=== PATIENT | female | born 1950 | race Caucasian/White ===

== ENCOUNTER 2016-09-27 10:44 | Emergency (ER) | payer MEDICARE ==
[2016-09-27] MEDS ORDERED: TORAdol 30 mg Injection IV ONE (11:37)
[2016-09-27] MEDS ORDERED: Sodium Chloride 0.9% 1000 ML 1,000 ML IV SCH (11:45)
--- NOTE | 2016-09-27 11:47 | ERPHSYRPT ---
- History of Present Illness Time Seen by Provider: 09/27/16 11:20 Historian: patient Exam Limitations: clinical condition Patient Subjective Stated Complaint: pt here for pain to right sided chest pain for 2 days, worse with movement, co some sob, no cough, fever, or nausea Triage Nursing Assessment: pt alert, resp easy,skin w/d, chest clear, moves all ext well. no edema noted, Physician History: PATIENT WITH HISTORY OF DIABETES, HYPERTENSION COMPLAINS OF PRODUCTIVE COUGH YELLOW SPUTUM, RIGHT SIDED CHEST PAINS UPON DEEP INSPIRATION, MOTION OF TORSO AND COUGHING. DENIES FEVER, CHILLS, RADIATION OF PAIN TO NECK, JAW, ARMS OR DYSPNEA Timing/Duration: day(s) Activities at Onset: none Quality: sharpness Location: other (RIGHT SIDE OF CHEST) Severity of Pain-Max: mild Severity of Pain-Current: mild Modifying Factors: Improves With: breathing, coughing, change in position Associated Symptoms: cough Prior Chest Pain/Cardiac Workup: no prior cardiac workup Nitro Today/Relief: no nitro taken today Aspirin Treatment Today: no aspirin today Allergies/Adverse Reactions: No Known Drug Allergies Allergy (Verified 09/27/16 11:15) Home Medications: Aspirin [Tessa Chewable] 81 mg PO DAILY 04/01/14 [History] Ca Carbonate/Vitamin D3/Vit K [Calcium + D Soft Chewable Tab] 1 each PO DAILY [History] Glipizide 10 mg [Glucotrol 10 MG] 10 mg PO BID 04/01/14 [History] Levothyroxine Sodium 150 Mcg [Synthroid 150 Mcg] 112 mcg PO DAILY 04/01/14 [History] Lisinopril/Hydrochlorothiazide [Lisinopril-Hctz 20-25 mg Tab] 1 tab PO DAILY [History] Metformin HCl 1000 mg [Glucophage 1000 MG] 1,000 mg PO BID 04/01/14 [History] Alendronate Sodium 70 mg [Fosamax 70 MG] 70 mg WEEKLY 09/27/16 [History] Pravastatin Sodium 40 mg DAILY 09/27/16 [History] Hx Influenza Vaccination/Date Given: Yes Hx Pneumococcal Vaccination/Date Given: Yes Immunizations Up to Date: Yes - Review of Systems Constitutional: No Fever, No Chills Eyes: No Symptoms Ears, Nose, & Throat: No Symptoms Respiratory: Cough, No Dyspnea Cardiac: Chest Pain, No Edema, No Syncope Abdominal/Gastrointestinal: No Symptoms, No Abdominal Pain, No Nausea, No Vomiting, No Diarrhea Genitourinary Symptoms: No Symptoms, No Dysuria Musculoskeletal: No Symptoms, No Back Pain, No Neck Pain Skin: No Symptoms, No Rash Neurological: No Symptoms, No Dizziness, No Focal Weakness, No Sensory Changes Psychological: No Symptoms Endocrine: No Symptoms All Other Systems: Reviewed and Negative - Past Medical History Pertinent Past Medical History: Yes Neurological History: No Pertinent History ENT History: No Pertinent History Cardiac History: Hypertension Respiratory History: No Pertinent History Endocrine Medical History: Diabetes Type II, Hypothyroidism Musculoskeletal History: No Pertinent History GI Medical History: No Pertinent History History: No Pertinent History Psycho-Social History: No Pertinent History Female Reproductive Disorders: No Pertinent History - Past Surgical History Past Surgical History: Yes Cardiac: No Pertinent History Respiratory: No Pertinent History Gastrointestinal: Cholecystectomy Genitourinary: Other Other Surgical History: multi bladder surg - Social History Smoking Status: Never smoker Exposure to second hand smoke: Yes Alcohol Use: None Drug Use: none Patient Lives Alone: No - Female History Hx Last Menstrual Period: post - Nursing Vital Signs Temperature: 96.8 F Temperature Source: Oral Pulse Rate: 93 Respiratory Rate: 14 Pain Intensity: 0 - Physical Exam General Appearance: no apparent distress, alert Eye Exam: PERRL/EOMI, eyes nml inspection Ears, Nose, Throat Exam: normal ENT inspection, moist mucous membranes Neck Exam: normal inspection, non-tender, supple, full range of motion Respiratory Exam: normal breath sounds, chest tenderness (THERE IS RIGHT PARASTERNAL TENDERNESS T-2 TO T-4), lungs clear, No respiratory distress Cardiovascular Exam: regular rate/rhythm, normal heart sounds Gastrointestinal/Abdomen Exam: soft, normal bowel sounds, No tenderness, No mass Back Exam: normal inspection, No CVA tenderness, No vertebral tenderness Extremity Exam: normal inspection, normal range of motion Neurologic Exam: alert, oriented x 3, cooperative, normal mood/affect, sensation nml, No motor deficits Skin Exam: normal color, warm, dry SpO2 Interpretation: normal SpO2: 96 Oxygen Delivery: Room Air - Course EKG Interpreted by Me: RATE, Sinus Rhythm, Non-specific ST Changes - Radiology Exams Chest X-ray Interpretation: Discussed w/ radiologist (THERE IS A RIGHT BASE INFILTRATE /ATELECTASIS AND FOCAL EVENTRATION OF THE RIGHT HEMIDIAPHRAGM) Ordered Tests: Active Orders 24 hr Category Date Time Status EKG-ER Only STAT Care 09/27/16 11:36 Active IV Insertion STAT Care 09/27/16 11:36 Active Oxygen-ED Only NASAL CANNULA 2 lpm Care 09/27/16 11:36 Active CHEST 1 VIEW (PORTABLE) Stat Exams 09/27/16 11:37 Completed BLOOD CULTURE Stat Lab 09/27/16 12:00 Received BMP Stat Lab 09/27/16 11:50 Completed CBC W DIFF Stat Lab 09/27/16 11:50 Completed MAGNESIUM Stat Lab 09/27/16 11:50 Completed PROTIME WITH INR Stat Lab 09/27/16 11:50 Completed TROPONIN Q3H Lab 09/27/16 11:50 Completed TROPONIN Q3H Lab 09/27/16 14:45 Ordered TROPONIN Q3H Lab 09/27/16 17:45 Ordered TROPONIN Q3H Lab 09/27/16 20:45 Ordered TROPONIN Q3H Lab 09/27/16 23:45 Ordered Medication Summary Generic Name Dose Route Start Last Admin Trade Name Freq PRN Reason Stop Dose Admin Sodium Chloride 1,000 mls @ 50 mls/hr 09/27/16 11:45 09/27/16 11:57 Sodium Chloride 0.9% 1000 Ml IV 10/27/16 11:44 50 mls/hr .Q20H VINAY Administration Azithromycin 250 mls @ 125 mls/hr 09/27/16 12:09 09/27/16 13:07 Zithromax 500 Mg/ 250 Ml Nacl Premix IV 09/27/16 14:08 125 mls/hr STAT ONE Administration Discontinued Medications Generic Name Dose Route Start Last Admin Trade Name Freq PRN Reason Stop Dose Admin Sodium Chloride Confirm 09/27/16 11:53 Sodium Chloride 0.9% 1000 Ml Administered 09/27/16 11:54 Dose 1,000 mls @ ud .ROUTE .STK-MED ONE Ceftriaxone Sodium/Dextrose 50 mls @ 100 mls/hr 09/27/16 12:09 09/27/16 12:18 Rocephin 1 Gm-D5w 50 Ml Bag IV 09/27/16 12:38 100 mls/hr STAT ONE Administration Ceftriaxone Sodium/Dextrose Confirm 09/27/16 12:17 Rocephin 1 Gm-D5w 50 Ml Bag Administered 09/27/16 12:18 Dose 50 mls @ ud IV .STK-MED ONE Azithromycin Confirm 09/27/16 12:58 Zithromax 500 Mg/ 250 Ml Nacl Premix Administered 09/27/16 12:59 Dose 250 mls @ ud IV .STK-MED ONE Ketorolac Tromethamine 30 mg 09/27/16 11:37 09/27/16 11:57 Toradol 30 Mg Injection IV 09/27/16 11:38 30 mg STAT ONE Administration Ketorolac Tromethamine Confirm 09/27/16 11:53 Toradol 30 Mg Injection Administered 09/27/16 11:54 Dose 30 mg .ROUTE .STK-MED ONE Lab/Rad Data: Laboratory Result Diagrams 09/27/16 11:50 09/27/16 11:50 Laboratory Results 09/27/16 09/27/16 09/27/16 Range/Units 11:50 11:50 11:50 WBC (4.0-10.5) K/mm3 RBC (4.1-5.4) M/mm3 Hgb (12.0-16.0) gm/dl Hct (35-47) % MCV (78-100) fl MCH (26-32) pg MCHC (32-36) g/dl RDW (11.5-14.0) % Plt Count (150-450) K/mm3 MPV (6-9.5) fl Gran % (36.0-66.0) % Lymphocytes % (24.0-44.0) % Monocytes % (0.0-12.0) % Eosinophils % (0.00-5.0) % Basophils % (0.0-0.4) % Basophils # (0-0.4) INR 1.03 (0.8-3.0) Sodium 142 (136-145) mEq/L Potassium 3.6 (3.5-5.1) mEq/L Chloride 106 (98-107) mEq/L Carbon Dioxide 27.8 (21-32) mEq/L Anion Gap 11.5 (5-15) MEQ/L BUN 25 H (9-20) mg/dL Creatinine 1.03 (0.55-1.30) mg/dl Estimated GFR 57 ML/MIN Glucose 138 H (70-110) MG/DL Calcium 8.9 (8.5-10.1) mg/dL Magnesium 1.5 L (1.8-2.4) mg/dL Troponin I < 0.017 (0.000-0.056) ng/ml 09/27/16 Range/Units 11:50 WBC 7.9 (4.0-10.5) K/mm3 RBC 4.45 (4.1-5.4) M/mm3 Hgb 12.1 (12.0-16.0) gm/dl Hct 38.1 (35-47) % MCV 85.6 (78-100) fl MCH 27.2 (26-32) pg MCHC 31.8 L (32-36) g/dl RDW 15.7 H (11.5-14.0) % Plt Count 263 (150-450) K/mm3 MPV 10.7 H (6-9.5) fl Gran % 67.9 H (36.0-66.0) % Lymphocytes % 18.6 L (24.0-44.0) % Monocytes % 6.5 (0.0-12.0) % Eosinophils % 6.6 H (0.00-5.0) % Basophils % 0.4 (0.0-0.4) % Basophils # 0.03 (0-0.4) INR (0.8-3.0) Sodium (136-145) mEq/L Potassium (3.5-5.1) mEq/L Chloride (98-107) mEq/L Carbon Dioxide (21-32) mEq/L Anion Gap (5-15) MEQ/L BUN (9-20) mg/dL Creatinine (0.55-1.30) mg/dl Estimated GFR ML/MIN Glucose (70-110) MG/DL Calcium (8.5-10.1) mg/dL Magnesium (1.8-2.4) mg/dL Troponin I (0.000-0.056) ng/ml - Progress Progress: improved Air Movement: good Progress Note: 09/27/16 13:28 PATIENT GIVEN IV NORMAL SALINE 100ML/HR, ROCEPHIN 1GM AND ZITHROMAX 500MG IVPB AFTER BLOOD CULTURES Blood Culture(s) Obtained: Yes Antibiotics given: Yes Counseled pt/family regarding: lab results, diagnosis, need for follow-up, rad results - Departure Time of Disposition: 14:00 Departure Disposition: Home Clinical Impression: PNEUMONIA Condition: Stable Critical Care Time: No Referrals: DANIA POPE [Primary Care Provider] - Additional Instructions: TAKE OVER THE COUNTER COUGH SYRUP FOR COUGHING. ANTIBIOTIC CEFTIN 250MG TWICE DAILY FOR 10 DAYS, ALONG WITH ZITHROMAX 500MG DAILY FOR 3 DAYS. MAGNESIIUM OXIDE 400MG TWICE DAILY FOR 7 DAYS FOR TREATMENT OF LOW MAGNESIUM. CONSULT YOUR FAMILY PHYSICIAN FOR EVALUATION IN 1 WEEK. Prescriptions: Azithromycin [Zithromax Tri-Lalo 500 mg] 500 mg PO DAILY #3 tablet Cefuroxime Axetil [Cefuroxime] 250 mg PO BID #20 tablet Magnesium Oxide [Magnesium] 400 mg PO BID #14 tablet
[2016-09-27 11:53] LABS: BASOPHIL % 0.4 % (0.0-0.4); Eosinophil % 6.6 % (0.00-5.0); Granulocytes % 67.9 % (36.0-66.0); Lymphocytes % 18.6 % (24.0-44.0); Mean Cell Volume 85.6 fl (78-100); Mean Corpuscular Hemoglobin 27.2 pg (26-32); Mean Platelet Volume 10.7 fl (6-9.5); Monocytes % 6.5 % (0.0-12.0); Platelet Count 263 K/mm3 (150-450); Red Blood Count 4.45 M/mm3 (4.1-5.4); Red Cell Distribution Width 15.7 % (11.5-14.0); White Blood Count 7.9 K/mm3 (4.0-10.5)
[2016-09-27] MEDS ORDERED: TORAdol 30 mg Injection ONE (11:53)
[2016-09-27] MEDS ORDERED: Sodium Chloride 0.9% 1000 ML 1,000 ML ONE (11:53)
--- NOTE | 2016-09-27 12:05 | XRAY ---
Indication: Cough. Comparison: None Portable apical lordotic chest demonstrates right base infiltrate/atelectasis and focal eventration of the right hemidiaphragm. Remaining heart and lungs unremarkable. Bony thorax intact with mild degenerative changes.
[2016-09-27] MEDS ORDERED: ROCEPHIN 1 Gm-D5w 50 ml Bag** 50 ML IV ONE ×2 (12:09→12:17)
[2016-09-27] MEDS ORDERED: Zithromax 500 MG/ 250 ML NaCl Premix 250 ML IV ONE ×2 (12:09→12:58)
[2016-09-27 12:27] LABS: INR 1.03 (0.8-3.0); PROTIME 11.5 SECONDS (9.95-12.35)
[2016-09-27 12:29] LABS: ANION GAP 11.5 MEQ/L (5-15); Carbon Dioxide 27.8 mEq/L (21-32); MAGNESIUM 1.5 mg/dL (1.8-2.4); Potassium 3.6 mEq/L (3.5-5.1)
[2016-09-27 14:39] VITALS: BP 146/88; PULSE 92; O2SAT 95
== END 2016-09-27 14:38 | disposition home or self-care (01) ==
LOC: ED 10:44
DX: J18.9 Pneumonia, unspecified organism (principal); R07.89 Other chest pain; R05 Cough; I10 Essential (primary) hypertension; E03.9 Hypothyroidism, unspecified; E11.9 Type 2 diabetes mellitus without complications; Z79.84 Long term (current) use of oral hypoglycemic drugs; Z79.899 Other long term (current) drug therapy
CPT/HCPCS: 36000; 36415; 71010; 80048; 83735; 84484; 85025; 85610; 87040; 93005; 96360; 96361; 96365; 96366; 99285; J0456; J0696; J1885

== ENCOUNTER 2022-09-05 22:25 | Emergency (ER) | payer MEDICARE ==
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
[2022-09-05] MEDS ORDERED: Hydromorphone 1 mg/ml Injection IM ONE (22:56)
[2022-09-05] MEDS ORDERED: Norflex 60 MG/2 ML IM ONE (22:57)
[2022-09-05] MEDS ORDERED: ZOFRAN ODT 4 MG PO ONE (22:57)
[2022-09-05] MEDS ORDERED: Norflex 60 MG/2 ML ONE (23:02)
[2022-09-05] MEDS ORDERED: ZOFRAN ODT 4 MG ONE (23:02)
[2022-09-05] MEDS ORDERED: Hydromorphone 1 mg/ml Injection ONE (23:03)
[2022-09-05 23:33] VITALS: BP 138/75; PULSE 69; O2SAT 95
--- NOTE | 2022-09-06 09:04 | XRAY ---
Indication: Pain following fall. Multiple contiguous axial images obtained through the thoracic spine. Sagittal and coronal reformatted images obtained. Comparison: None Age-related osteopenia. Axial images negative for acute fracture, suspicious bony lesions, or spinal canal stenosis. Flowing osteophytes structures spine favoring diffuse idiopathic skeletal hyperostosis. Sagittal and coronal reformatted images demonstrate normal alignment. Vertebral body heights/disc spaces maintained. No acute compression fracture or subluxation. Visualized noncontrasted soft tissues demonstrates mild scattered aortic calcifications, incompletely visualized right middle lobe subsegmental atelectasis/scarring, and a few tiny calcified granulomas. Right lower lobe demonstrates 6 mm noncalcified nodule (image 71), possibly granulomatous. Impression: 1. Negative acute fracture/subluxation. 2. Chronic findings including osteopenia and DISH. 3. Incidental right lower lobe noncalcified micronodule, possibly granulomatous as there is old granulomatous disease elsewhere. Comment: Preliminary interpretation made by [facility]. No critical discrepancy.
== END 2022-09-05 23:50 | disposition home or self-care (01) ==
LOC: ED 22:25
DX: M54.6 Pain in thoracic spine (principal); W18.39XA Other fall on same level, initial encounter; R91.8 Other nonspecific abnormal finding of lung field; I10 Essential (primary) hypertension; E11.9 Type 2 diabetes mellitus without complications; Z79.52 Long term (current) use of systemic steroids; Z79.84 Long term (current) use of oral hypoglycemic drugs; Z79.899 Other long term (current) drug therapy
CPT/HCPCS: 72128; 96372; 99283; J1170; J2360; Q0162